=== PATIENT | female | born 1995 | race Caucasian/White ===

== ENCOUNTER 2024-08-27 16:02 | Emergency (ER) | payer OTHER, SELFPAY ==
[2024-08-27 16:47] VITALS: BP 117/63; PULSE 78; RESP 18; TEMP 36.8; O2SAT 99; BMI 20.7
[2024-08-27 17:36] VITALS: BP 110/70; PULSE 70; RESP 16; TEMP 36.6; O2SAT 98
--- NOTE | 2024-08-27 19:45 | ED_ITS ---
Discharge Plan Disposition Patient Disposition: Home, Self-Care Condition: Good Prescriptions Prescriptions: New cephalexin 500 mg capsule 500 mg PO Q8H 7 Days Qty: 21 0RF triamcinolone acetonide 0.1 % cream 1 applic topical BID PRN (Reason: itching) Qty: 15 0RF Activity Restrictions/Add. Instructions Additional Instructions/Restrictions: You were evaluated in the emergency department today. Please use the steroid ointment as needed for itching. 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 Take Tylenol and ibuprofen as needed for pain. Follow-up closely with your primary care provider for wound recheck. Return to the emergency department for new or worsening symptoms. Clinical Impressions Clinical Impression: Infected insect bite Stand Alone Forms Stand Alone Forms: Work/School Release Instructions Patient Instructions: DI for Cellulitis -- Adult, DI for Insect Bites and Stings Print Language Print Language: Irish Discharge ED Provider: Celia Archibald General Adult HPI General Chief complaint: Skin/Abscess/Foreign Body Stated complaint: Rash on feet and legs Time Seen by Provider: 08/27/24 17:19 Mode of Arrival: Ambulatory Source of Information: Patient Description of Symptoms (Recalled from ER Triage Doc. by RN): Pt presents for evaluation of rash to bilateral lower extremities. Pt states she was outside the evening of august 23 and thought she just had bug bites. but the rash is sore and worse when she gets a bath History of Present Illness HPI narrative: This patient is a 28-year-old female without significant past medical history presenting to the emergency department for evaluation with concern for multiple insect bites that are very itchy, and one that is painful on her left foot. She states she is never had 1 be painful like the one on her foot before. She notes that her side of her left foot is very red, painful, and swollen. She states that it hurts to walk. The other insect bites are scattered across her lower legs and her arms. No other concerns or complaints noted such as systemic symptoms Related Data Previous Rx's ?Medication ?Instructions ?Recorded cephalexin 500 mg capsule 500 mg PO Q8H 7 days #21 cap s 08/27/24 triamcinolone acetonide 0.1 % 1 applic topical BID PRN itching 08/27/24 topical cream #15 grams Allergies Allergy/AdvReac Type Severity Reaction Status Date / Time No Known Allergies Allergy Verified 08/27/24 17:28 PFSH PFSH Disclaimer: The information contained in this section may have been updated after the patient was seen, as this information can be updated by other users. Social History Smoking Status: Never smoker alcohol intake: never current occupational status: employed Travel in the last 8 weeks?: None ROS Obtained: Yes All systems reviewed & no additional complaints except as documented Physical Exam General General appearance: alert and in no apparent distress Head Head exam: atraumatic and normocephalic Eye Eye exam: Present normal appearance, PERRL and EOMI ENT ENT exam: Present normal exam, normal oropharynx, mucous membranes moist and normal external ear exam Neck Neck exam: Present normal inspection, full ROM and trachea midline; Absent tenderness Chest Chest inspection: Present normal inspection and symmetric chest wall rise; Absent tenderness Respiratory Respiratory exam: Present normal lung sounds bilaterally; Absent respiratory distress, wheezes, stridor or accessory muscle use Cardiovascular Cardiovascular exam: Present regular rate and normal rhythm Abdominal Exam Abdominal exam: Present soft; Absent distention, tenderness or guarding Extremities Exam Extremities exam: Present normal inspection, full ROM and normal capillary refill; Absent tenderness or edema Back Exam Back exam: Present normal inspection and full ROM; Absent tenderness Neurological Exam Neurological exam: Present alert, oriented X3, CN II-XII intact and normal gait; Absent motor sensory deficit Psychiatric Psychiatric exam: Present normal affect and normal mood Skin Skin exam: Present warm, dry and other (Multiple insect bites on the lower legs as well as the forearms. Red, warm, swollen infected insect bite to the lateral aspect of the left foot with no significant red streaking away. Neurovascularly intact distally. Intact range of motion) Medical Decision Making Medical Records Medical records reviewed: Yes I reviewed the patient's medical records. Screening: Per USPSTF and CDC recommendations, given the prevalence of disease in our region, it is our hospital?s policy to screen for HIV and viral Hepatitis for all patients aged 18 and over and those with ongoing risk factors. Roman Inquiry Pt receiving controlled substance: No Vital Signs: 08/27/24 16:47 08/27/24 17:36 Temperature 98.3 F 97.9 F Temperature Source Tympanic Pulse Rate 70 Pulse Rate [Right] 78 Respiratory Rate 18 16 Blood Pressure 110/70 Blood Pressure [Right Arm] 117/63 Blood Pressure Mean [Right Arm] 81 Blood Pressure Source [Right Arm] Automatic Cuff Blood Pressure Position [Right Arm] Sitting 02 Sat by Pulse Oximetry 99 Oxygen Delivery Method Room Air Lab Data Lab results reviewed: Yes I reviewed the patient's lab results. Medical Decision Narrative: In summary, this patient is a 28-year-old female presenting to the Emergency Department for evaluation of multiple bug bites, with one of her left foot being red, warm, and painful especially with walking. Differential diagnoses considered include but are not limited to infected insect bite, contact dermatitis, HSP, vasculitis. Ruling out the most morbid conditions drove assessment. On exam, the patient is well-appearing. She has insect bites, and the one on the lateral aspect of her left foot looks like it could be getting infected with surrounding erythema, warmth, and tenderness. It is possible could just be a local inflammatory response, but I am electing to put the patient on Keflex for antibiotic coverage. I also prescribed triamcinolone for the itching. I consider diagnosis of HSP, but the patient's exam is not consistent with vasculitis. Ultimately, I feel she is appropriate for discharge home with prescriptions and instructions for close follow-up. Strict return precautions given Critical Care Critical Care Time Critical Care Time: No
== END 2024-08-27 17:36 | disposition home or self-care (01) ==
LOC: ER 17:44
PROVIDERS: Emergency Provider Emergency Medicine
DX: S90.862A Insect bite (nonvenomous), left foot, initial encounter (principal); L08.9 Local infection of the skin and subcutaneous tissue, unspecified; W57.XXXA Bitten or stung by nonvenomous insect and other nonvenomous arthropods, initial encounter
CPT/HCPCS: 99283